=== PATIENT | female | born 1970 | race Caucasian/White ===

== ENCOUNTER 2017-01-27 10:54 | Emergency (ER) | payer MEDICAID ==
[~2017-01-27] VITALS: Ht 167.6 cm; Wt 60.3 kg
--- NOTE | 2017-01-27 11:07 | NUR ---
PT PRESENTED TO THE ER WITH A C/O PAIN WITH URINATION. PT WOKE UP THIS AM WITH ABD PAIN WHEN URINATING. PT C/O SHIVERING WITH THE PAIN. PT WAS TAKEN FROM TRIAGE TO BED #9 VIA WC. PT AMBULATED TO THE BATHROOM WITH A STEADY GAIT. PT IS TRYING TO GIVE A URINE SAMPLE. PT IS GUARDING HER ABD WHEN WALKING.
[2017-01-27 11:17] LABS: APPEARANCE,URINE Turbid (CLEAR); BILIRUBIN,URINE SMALL (NEGATIVE); BLOOD, URINE Moderate Ery/uL (NEGATIVE); COLOR,URINE Dark (YELLOW); KETONES,URINE 15 (NEGATIVE); LEUKOCYTE ESTERASE ,URINE Small (NEGATIVE); NITRITE, URINE Negative (NEGATIVE); PROTEIN,URINE >=300 mg/dl (NEGATIVE); UGLUCOSE Negative (NEGATIVE)
[2017-01-27 11:19] LABS: PREGNANCY TEST URINE QUAL NEGATIVE (NEGATIVE)
[2017-01-27 11:25] LABS: ADD URINE CULTURE NO; BACTERIA,URINE Few /HPF (None Seen); RBC,URINE 0-2 /HPF (0-2); SQUAMOUS EPITHELIAL CELL,UR Moderate /HPF (None Seen); WBC,URINE 20-30 /HPF (0-3)
[2017-01-27] MEDS ORDERED: KETOROLAC TROMETHAMINE INJ 30 MG/ML VIAL IV ONE (11:30)
[2017-01-27] MEDS ORDERED: IV NS 0.9% 500 ML BAG IV ONE (11:30)
[2017-01-27] MEDS ORDERED: IV NS 0.9% 500 ML IV ONE (11:33)
[2017-01-27] MEDS ORDERED: IV SET PRIMARY 1 EA INFUS.SET MC ONE ×2 (11:33→12:17)
[2017-01-27] MEDS ORDERED: KETOROLAC TROMETHAMINE 15 MG/ML VIAL ONE (11:33)
[2017-01-27 11:34] LABS: BASOPHILS % (AUTO) 0.2 % (0.0-2.0); EOSINOPHILS % (AUTO) 0.2 % (0.0-6.0); HEMATOCRIT 36 % (33-45); HEMOGLOBIN 12.2 g/dL (11.5-14.8); LYMPHOCYTES # (AUTO) 0.4 /CMM (0.8-4.8); LYMPHOCYTES % (AUTO) 5.3 % (20.0-44.0); MEAN CORPUSCULAR HEMOGLOBIN 29 PG (26.0-33.0); MEAN CORPUSCULAR HGB CONC 34 g/dl (31.0-36.0); MEAN CORPUSCULAR VOLUME 86 fL (82-100); MONOCYTES # (AUTO) 0.1 /CMM (0.1-1.30); MONOCYTES % (AUTO) 0.6 % (2.0-12.0); NEUTROPHILS % (AUTO) 93.7 % (43.0-81.0); PLATELET COUNT (AUTO) 174 /CMM (150-450); RDW COEFFICIENT OF VARIATION 12.4 (11.5-15.0); RED BLOOD CELL COUNT(AUTO) 4.22 MIL/uL (4.0-5.2); WHITE BLOOD COUNT (AUTO) 8.5 K/uL (4.3-11.0)
--- NOTE | 2017-01-27 11:45 | NUR ---
PT REC'D MEDICATION ORDERED.
[2017-01-27 11:53] LABS: CREATININE 0.8 mg/dL (0.6-1.3); POTASSIUM 3.8 mmol/L (3.5-5.1)
[2017-01-27] MEDS ORDERED: CEFTRIAXONE 1GM BAG (ER ONLY) 50 ML IV ONE (12:17)
--- NOTE | 2017-01-27 12:22 | NUR ---
PT REC'D MEDICATION ORDERED.
[2017-01-27] MEDS ORDERED: CEFTRIAXONE 1GM BAG (ER ONLY) 1 GM/50 ML PIGGYBACK IV ONE (12:30)
--- NOTE | 2017-01-27 12:41 | NUR ---
IV removed. Catheter intact and site benign. Pressure and 4x4 applied to site. No bleeding noted.Patient discharged to home in stable condition. Written and verbal after care instructions given. Patient verbalizes understanding of instruction AND RX. PT AMBULATED OUT WITH A STEADY GAIT. VSS
[2017-01-27 12:45] VITALS: BP 119/68
== END 2017-01-27 12:46 | disposition home or self-care (01) ==
LOC: ER 10:58
DX: N10 Acute pyelonephritis (principal); E03.9 Hypothyroidism, unspecified
CPT/HCPCS: 36415; 80048-TC; 81000-TC; 84703-TC; 85025-TC; 87086-TC; 87186-TC; A4606; J0696; J1885; J7040; Z7610

== ENCOUNTER 2017-06-15 14:36 | Emergency (ER) | payer BC, MEDICAID ==
[~2017-06-15] VITALS: Ht 167.6 cm; Wt 61.2 kg
[2017-06-15] MEDS ORDERED: IV NS 0.9% 1,000 ML BAG IV ONE (15:30)
[2017-06-15] MEDS ORDERED: ONDANSETRON HCL/PF 4 MG/2 ML VIAL IVP ONE (15:30)
[2017-06-15] MEDS ORDERED: MORPHINE SULFATE INJ 2 MG/ML DISP.SYRIN IV ONE (15:30)
[2017-06-15] MEDS ORDERED: ONDANSETRON HCL/PF 4 MG/2 ML VIAL ONE (15:31)
[2017-06-15] MEDS ORDERED: MORPHINE SULFATE INJ 2 MG/ML DISP.SYRIN ONE (15:31)
[2017-06-15 15:45] LABS: BASOPHILS % (AUTO) 0.3 % (0.0-2.0); EOSINOPHILS % (AUTO) 0.2 % (0.0-6.0); HEMATOCRIT 38 % (33-45); HEMOGLOBIN 12.8 g/dL (11.5-14.8); LYMPHOCYTES # (AUTO) 1.2 /CMM (0.8-4.8); MEAN CORPUSCULAR HEMOGLOBIN 29 PG (26.0-33.0); MEAN CORPUSCULAR HGB CONC 34 g/dl (31.0-36.0); MEAN CORPUSCULAR VOLUME 86 fL (82-100); MONOCYTES # (AUTO) 0.6 /CMM (0.1-1.30); MONOCYTES % (AUTO) 7.5 % (2.0-12.0); NEUTROPHILS # (AUTO) 6.2 /CMM (1.8-8.9); PLATELET COUNT (AUTO) 189 /CMM (150-450); RDW COEFFICIENT OF VARIATION 13.4 (11.5-15.0); RED BLOOD CELL COUNT(AUTO) 4.39 MIL/uL (4.0-5.2); WHITE BLOOD COUNT (AUTO) 8.1 K/uL (4.3-11.0)
[2017-06-15 16:31] LABS: APPEARANCE,URINE CLEAR (CLEAR); BILIRUBIN,URINE NEGATIVE (NEGATIVE); BLOOD, URINE 3+ Ery/uL (NEGATIVE); COLOR,URINE YELLOW (YELLOW); KETONES,URINE NEGATIVE (NEGATIVE); LEUKOCYTE ESTERASE ,URINE 1+ (NEGATIVE); NITRITE, URINE NEGATIVE (NEGATIVE); PH,URINE 6.5 (5.0-8.0); PROTEIN,URINE NEGATIVE (NEGATIVE); UGLUCOSE NEGATIVE (NEGATIVE); UROBILINOGEN,URINE 0.2 EU/dL (0.2)
[2017-06-15 16:34] LABS: PREGNANCY TEST URINE QUAL NEGATIVE (NEGATIVE)
[2017-06-15 16:51] LABS: BACTERIA,URINE None seen /HPF (None Seen); SQUAMOUS EPITHELIAL CELL,UR Few /HPF (None Seen)
[2017-06-15] MEDS ORDERED: CIPROFLOXACIN HCL 250 MG TABLET PO ONE (17:30)
[2017-06-15] MEDS ORDERED: CIPROFLOXACIN HCL 500 MG TABLET ONE (17:44)
[2017-06-15 17:46] LABS: CALCIUM, SERUM 8.1 mg/dL (8.5-10.1); CREATININE 0.7 mg/dL (0.6-1.3); POTASSIUM 3.8 mmol/L (3.5-5.1)
[2017-06-15 17:55] LABS: ALBUMIN 3.6 g/dL (3.4-5.0); BILIRUBIN,DIRECT 0.1 mg/dL (0.0-0.2); BILIRUBIN,TOTAL 0.6 mg/dL (0.2-1.0); TOTAL PROTEIN, SERUM 7.8 g/dL (6.4-8.2)
[2017-06-15 18:25] VITALS: BP 114/68
--- NOTE | 2017-06-15 18:30 | NUR ---
Patient discharged to home in stable condition. Written and verbal after care instructions given. Patient verbalizes understanding of instruction.IV removed. Catheter intact and site benign. Pressure and 4x4 applied to site. No bleeding noted.
== END 2017-06-15 18:35 | disposition home or self-care (01) ==
LOC: ER 14:40
DX: N10 Acute pyelonephritis (principal); E86.0 Dehydration; E03.9 Hypothyroidism, unspecified
CPT/HCPCS: 36415; 71010-TC; 80048-TC; 80076-TC; 81000-TC; 83690-TC; 84703-TC; 85025-TC; 87086-TC; A4606; J7030; Z7610